=== PATIENT | female | born 1995 | race Two or more races ===

== ENCOUNTER 2016-12-23 15:08 | Outpatient (CLI) | payer OTHER ==
[2016-12-23 15:33] VITALS: BMI 23.8
[2016-12-23 16:57] LABS: URINE BILIRUBIN NEGATIVE (NEGATIVE); URINE BLOOD NEGATIVE (NEGATIVE); URINE GLUCOSE (UA) NEGATIVE (NEGATIVE); URINE LEUKOCYTE ESTERASE NEGATIVE (NEGATIVE); URINE NITRITE NEGATIVE (NEGATIVE); URINE PROTEIN NEGATIVE (NEGATIVE); URINE UROBILINOGEN NORMAL (0-1 mg/dl)
[2016-12-23 16:58] LABS: URINE APPEARANCE CLEAR; URINE COLOR STRAW
== END 2016-12-23 17:25 | disposition home or self-care (01) ==
LOC: FBCOUT 15:08 → FBC 15:10 → FBCOUT 17:25
PROVIDERS: ATTEND Obstetrics & Gynecology
DX: O26.899 Other specified pregnancy related conditions, unspecified trimester (principal); Z3A.00 Weeks of gestation of pregnancy not specified

== ENCOUNTER 2017-01-01 00:36 | Inpatient (IN) | payer OTHER ==
[2017-01-01 00:57] VITALS: BMI 23.6
[2017-01-01] MEDS ORDERED: LACTATED RINGERS 1,000 ML IV PRN (04:12)
[2017-01-01] MEDS ORDERED: OXYTOCIN IN LR 500 ML IV ONE (04:12)
[2017-01-01] MEDS ORDERED: IV START KIT ONE (04:21)
[2017-01-01] MEDS ORDERED: PUMP TUBING ONE (04:21)
[2017-01-01] MEDS ORDERED: LIDOCAINE Viscous 2% 15 ML UDCUP ONE (04:21)
[2017-01-01] MEDS ORDERED: LIDOCAINE 1% (PRES FREE) 30 ML VIAL ONE (04:21)
[2017-01-01] MEDS ORDERED: MINERAL OIL 25 ML BOT ONE (04:21)
[2017-01-01] MEDS ORDERED: OXYTOCIN 10 UNITS/ML VIAL ONE (04:21)
[2017-01-01] MEDS ORDERED: FENTANYL/ROPIVACAINE EPIDURAL 250 ML EP ONE (04:45)
[2017-01-01] MEDS ORDERED: EPIDURAL PUMP SET ONE (04:45)
[2017-01-01 04:57] LABS: HEMATOCRIT 35.5 % (37.0-47.0); HEMOGLOBIN 11.6 gm/l (12.0-16.0); MEAN CELL VOLUME 85.7 fl (81.0-99.0); MEAN CORPUSCULAR HGB CONC 32.7 g/dl (33.0-37.0); RED CELL DISTRIBUTION WIDTH 12.8 % (11.5-14.5)
[2017-01-01] MEDS ORDERED: ROPIVACAINE 0.5% 30 ML VIAL ONE (05:17)
[2017-01-01] MEDS ORDERED: EPIDURAL PROCEDURE TRAY ONE (05:17)
--- NOTE | 2017-01-01 05:49 | PCMAN ---
OB Admission Note - History : 1 Term: 0 : 0 Abortions (S&E): 0 Livin Gestational Age (weeks): 38 Days (#/7): 6 Admit Cervical Dilation:: 5 Admit Cervical Effacement (%):: 80 Admit Station:: -1 Membrane Status: Intact Rupture (Date): 01/01/17 Contractions: Yes Heart Rate:: 140 Status:: category 1
--- NOTE | 2017-01-01 05:50 | PCMDEL ---
Delivery Note - Delivery Delivery (Date): 01/01/17 Delivery (Time): 05:25 Gender: Female Presentation: Cephalic Position: OA Umbilical Cord: 3 Vessel Delayed Cord Clamping:: 2-3 min Placenta:: spontaneous and complete EBL:: 300ml Perineum:: 2nd degree midline tear Suture:: 2-0 chromic Anesthesia/Meds:: local
[2017-01-01] MEDS ORDERED: DIPHTH,PERTUSS(ACELL),TET VAC 0.5 ML VIAL IM V ONE (05:53)
[2017-01-01] MEDS ORDERED: MEASLES,MUMPS&RUBELLA VACCINE 0.5 ML VIAL SUB-Q V ONE (05:53)
[2017-01-01] MEDS ORDERED: LANOLIN 50 APPLIC/7G TUBE TP PRN (05:53)
[2017-01-01] MEDS ORDERED: MAGNESIUM HYDROXIDE 30 ML UDCUP PO PRN (05:53)
[2017-01-01] MEDS ORDERED: BENZOCAINE/MENTHOL 60 APPLIC/BOT TP PRN (05:53)
[2017-01-01] MEDS ORDERED: LIDOCAINE 1% (PRES FREE) 30 ML VIAL SUB-Q ONE (06:47)
[2017-01-01] MEDS: HYDROCODONE/ACETAMINOPHEN 5/325MG TABLET PO PRN ×2 (08:41→18:07)
[2017-01-01] MEDS: IBUPROFEN 800 MG TABLET PO PRN ×2 (08:41→18:07)
[2017-01-01] MEDS ORDERED: DOCUSATE SODIUM 100 MG CAPSULE PO SCH (09:00)
[2017-01-02 07:21] LABS: HEMATOCRIT 31.6 % (37.0-47.0)
[2017-01-02 09:15] VITALS: BP 108/59
--- NOTE | 2017-01-02 10:41 | PDOC44 ---
- Subjective Day: 1 Reports Pain Tolerable, Reports , Reports Lochia Light, Reports Tolerating Regular Diet - Objective Temp Pulse Resp BP Pulse Ox 97.0 F 71 16 108/59 18 01/02/17 09:11 01/02/17 09:11 01/02/17 09:11 01/02/17 09:11 01/01/17 07:00 Lab Results 01/02/17 06:35 Hgb 10.0 L Hct 31.6 L Current Medications Generic Name Dose Route Start Last Admin Trade Name Freq PRN Reason Stop Dose Admin Acetaminophen/Hydrocodone Bitart 1 - 2 tab 01/01/17 05:53 01/01/17 18:07 [place] 5/325 PO 1 tab Q4H PRN Administration Pain (Moderate) Benzocaine/Menthol 1 applic 01/01/17 05:53 01/01/17 08:40 Dermoplast TP 1 bot PRN PRN Administration Patient Comfort Docusate Sodium 100 mg 01/01/17 09:00 01/01/17 08:41 Colace PO 100 mg DAILY BECKA Administration Emollient Ointment 1 applic 01/01/17 05:53 01/01/17 08:41 Nko-B-Gtchwn TP 1 tube PRN PRN Administration sore nipples Ibuprofen 800 mg 01/01/17 05:53 01/01/17 18:07 Motrin PO 800 mg Q6H PRN Administration Pain (Mild) Magnesium Hydroxide 30 ml 01/01/17 05:53 Milk Of Magnesia PO BEDTIME PRN Constipation - Physical Exam General: Afebrile Psych/Mental Status: Mood/Affect Appropriate Breast: Soft Fundus: Firm Abdomen: Normal Bowel Sounds Genitourinary: Normal Female Genitalia Disposition: Stable, Anticipate DC to Home
[2017-01-02] MEDS: IBUPROFEN 800 MG TABLET PO PRN (12:21)
== END 2017-01-02 13:46 | disposition home or self-care (01) | DRG 775 ==
LOC: FBC 00:36 → FBCOUT 00:36 → FBC 04:08 → FBCOUT 04:08
PROVIDERS: ADMIT Obstetrics & Gynecology; ATTEND Obstetrics & Gynecology
PROC: 10E0XZZ Delivery of Products of Conception, External Approach (ICD-10-PCS; principal; 2017-01-01)
PROC: 0KQM0ZZ Repair Perineum Muscle, Open Approach (ICD-10-PCS; 2017-01-01)
DX: O70.1 Second degree perineal laceration during delivery (principal); Z37.0 Single live birth; Z3A.38 38 weeks gestation of pregnancy